=== PATIENT | male | born 1990 | race Caucasian/White ===

== ENCOUNTER 2018-06-17 20:26 | Emergency (ER) | payer OTHER ==
[~2018-06-17] VITALS: Ht 172.7 cm; Wt 127.0 kg
[2018-06-17] MEDS ORDERED: morphine 4 MG/ML inj SYRINge IM ONE (21:50)
[2018-06-17] MEDS ORDERED: ondansetron 4mg rapidly disintigrating tab PO ONE (21:50)
[2018-06-17] MEDS ORDERED: ketorolac trometh inj. 60 MG/2 ML VIAL IM ONE (21:50)
[2018-06-17 22:44] VITALS: BP 133/111
[2018-06-17] MEDS ORDERED: HYDR-569 PO (22:53)
== END 2018-06-17 23:05 | disposition home or self-care (01) ==
LOC: ER 20:26
DX: G89.29 Other chronic pain (principal); M54.5 Low back pain; F31.9 Bipolar disorder, unspecified; F12.90 Cannabis use, unspecified, uncomplicated; Z79.899 Other long term (current) drug therapy
CPT/HCPCS: 96372; 99284; J1885; J2270; 99283